=== PATIENT | female | born 1955 | race African-American/Black ===

== ENCOUNTER 2018-12-22 13:27 | Day surgery (SDC) | payer OTHER ==
[~2018-12-22] VITALS: Ht 170.2 cm; Wt 113.1 kg
[~2018-12-22 13:27] MED LIST: ASPI-903 PO; DIVA-48 PO; GLIP5TAB13 PO; HYDR12.58 PO; LISI10TA2 PO; METF-480 PO; PROPOFOL 200 MG INJ ONE; RISP2TAB93 PO
[2018-12-22 14:27] VITALS: Ht 170.2 cm; Wt 113.1 kg
[2018-12-22] MEDS ORDERED: HYDROCORTISONE (14:53)
[2018-12-22] MEDS ORDERED: JARDIANCE (14:53)
[2018-12-22] MEDS ORDERED: METOPROLOL (14:53)
[2018-12-22] MEDS ORDERED: OMEGA 3 (14:53)
[2018-12-22] MEDS ORDERED: IBUPROFEN (14:54)
[2018-12-22] MEDS ORDERED: MAGNESIUM (14:54)
[2018-12-22] MEDS ORDERED: MULTIVITAMIN (14:54)
[2018-12-22] MEDS ORDERED: POTASSIUM (14:54)
--- NOTE | 2018-12-22 15:03 | PREAC ---
Date/Time of Note Date/Time of Note DATE: 12/22/18 TIME: 15:02 Anesthesia Eval and Record Evaluation Time Pre-Procedure Interview DATE: 12/22/18 TIME: 15:02 Age 63 Sex female NPO: 8 hrs Preoperative diagnosis SCREENING Planned procedure COLONOSCOPY Past Medical History Past Medical History: Includes Cardio: HTN Endo: Diabetes GI: Obesity Psych: Bipolar Surgery & Anesthesia Issues No known issue Meds Anticoagulation: No Beta Britt within 24 hr: Yes Reported Medications [Ibuprofen] No Conflict Check 12/22/18 [Multivitamin] No Conflict Check 12/22/18 [Potassium] No Conflict Check 12/22/18 [Magnesium] No Conflict Check 12/22/18 [[place] 3] No Conflict Check 12/22/18 [Metoprolol] No Conflict Check 12/22/18 [Hydrocortisone] No Conflict Check 12/22/18 [Jardiance] No Conflict Check 12/22/18 Divalproex Sodium* (Depakote*) 500 Mg Tablet.dr, 500 MG PO TID, TAB 03/18/15 Aspirin* (Aspirin* Chew) 81 Mg Tab.chew, 81 MG PO DAILY, TAB.CHEW 03/18/15 Risperidone* (Risperdal*) 2 Mg Tablet, 2 MG PO DAILY, TAB 03/18/15 Hydrochlorothiazide* (Hydrochlorothiazide*) 12.5 Mg Tablet, 12.5 MG PO DAILY, TAB 03/18/15 Lisinopril* (Lisinopril*) 10 Mg Tablet, 10 MG PO DAILY, TAB 03/18/15 Glipizide* (Glipizide*) 5 Mg Tablet, 5 MG PO BID, TAB 03/18/15 Metformin* (Glucophage*) 850 Mg Tablet, 850 MG PO WITH BREAKFAST, TAB 03/18/15 Meds reviewed: Yes Allergies Coded Allergies: No Known Drug Allergies (Unverified Allergy, Unknown, 12/22/18) Allergies Reviewed: Yes Labs/Studies Labs Reviewed: Reviewed by anesthesiologist test: N/A Pre-procedure Exam Airway: Adequate mouth opening, Adequate thyromental dist Mallampati: Mallampati II Teeth: Normal Lung: Normal Heart: Normal ASA Physical Status ASA physical status: 3 Emergency: None Planned Anesthetic General/MAC: MAC Planned Pain Management Parenteral pain med Pre-operative Attestations Prior to commencing anesthesia and surgery, the patient was re-evaluated, there was verification of: *The patient's identity *The results of appropriate recent lab work and preoperative vital signs *The above evaluation not changing prior to induction *Anesthetic plan, risk benefits, alternative and complications discussed with patient/family; questions answered; patient/family understands, accepts and wishes to proceed. JOE ALVAREZ Dec 22, 2018 15:03
[2018-12-22 15:09] VITALS: BP 127/76; PULSE 66; RESP 12
[2018-12-22] MEDS ORDERED: PROPOFOL 60 ML ONE (15:17)
[2018-12-22] MEDS ORDERED: LIDOCAINE 2% (SDV) 5 ML INJ ONE (15:17)
--- NOTE | 2018-12-22 15:23 | HPN ---
Date/Time of Note Date/Time of Note DATE: 12/22/18 TIME: 15:[address] Dec 22, 2018 15:23
[2018-12-22] MEDS ORDERED: FENTAnyl 50 MCG/ML VIAL IV PRN (15:30)
[2018-12-22] MEDS ORDERED: EPHEDrine SULFATE 50 MG/5 ML SYG IV PRN (15:30)
[2018-12-22] MEDS ORDERED: LABETALOL HCL 20MG INJ IV PRN (15:30)
[2018-12-22] MEDS ORDERED: hydrALAzine 20 MG INJ IV PRN (15:30)
[2018-12-22] MEDS ORDERED: ONDANSETRON 4 MG INJ IV PRN (15:30)
--- NOTE | 2018-12-22 15:58 | PAC ---
Date/Time of Note Date/Time of Note DATE: 12/22/18 TIME: 15:58 Post-Anesthesia Notes Post-Anesthesia Note Last documented vital signs Vital Signs Date Temp Pulse Resp B/P (MAP) Pulse Ox O2 O2 Flow FiO2 Time Delivery Rate 12/22/18 97.0 66 12 127/76 98 Room Air 15:58 (93) Activity: WNL Respiratory function: WNL Cardiovascular function: WNL Mental status: Baseline Pain reasonably controlled: Yes Hydration appropriate: Yes Nausea/Vomiting absent: Yes JOE ALVAREZ Dec 22, 2018 15:58
[2018-12-22 16:21] VITALS: BP 146/92; RESP 22
== END 2018-12-22 16:08 | disposition home or self-care (01) ==
LOC: GIL 13:27
PROVIDERS: ATTEND Internal Medicine Gastroenterology
DX: Z12.11 Encounter for screening for malignant neoplasm of colon (principal); K64.8 Other hemorrhoids; K64.4 Residual hemorrhoidal skin tags; D12.2 Benign neoplasm of ascending colon; E11.9 Type 2 diabetes mellitus without complications; I10 Essential (primary) hypertension
CPT/HCPCS: 45380; 82962; 88305; Z7610